=== PATIENT | female | born 1990 | race Caucasian/White ===

== ENCOUNTER 2017-02-15 07:13 | Emergency (ER) | payer BC ==
--- NOTE | ~2017-02-15 | ER ---
PATIENT'S NAME: ANDIE MCCLENDON [facility] AGE: 26 Y [address] ROOM: [place] [address] LOCATION: ED ADMIT DATE: 02/15/2017 ER/Outpatient Report DISCHARGE DATE: 02/15/2017 FAMILY PHYSICIAN: Patrice Vaca MD ATTENDING PHYSICIAN: Herrera Murphy Time of Arrival: Time of Evaluation: Admission date and time documented in the medical record. I saw the patient at 0730 hours. CHIEF COMPLAINT: Right-sided abdominal pain. HISTORY OF PRESENT ILLNESS: This patient is a 26-year-old female, who awoke from sleep, stood up, got severe right-sided abdominal pain. This has been about 20 to 30 minutes prior to admission here to the emergency room. Has a tight sensation in her abdomen, radiates, crossed to her umbilicus and around to her mid back. Little nausea, but no vomiting. No diarrhea. Had a bowel movement last night. No chest pain, shortness of breath. No fall or trauma. No recent colds, coughs, flus, fever, chills, or sweats. No headache, eyes, ears, nose, throat, neck, or spine pain. No lightheadedness, dizziness, syncope, or near syncope. No urinary symptomatology. No joint or muscle swelling, redness, or pain. No skin eruptions or rash. Does have a history of chronic migraine headaches, otherwise, no neurological changes, psychiatric issues, or endocrine problems. HOME MEDICATIONS: See attached medication list. ALLERGIES: ERYTHROMYCIN, PENICILLIN, CEPHALOSPORINS, BIAXIN, CEFTIN, CECLOR, LIDOCAINE, AND ADHESIVES. SOCIAL HISTORY: The patient smokes about a quarter to half pack of cigarettes per day. Nondrinker. SIGNIFICANT PAST MEDICAL HISTORY: 1. Headaches. 2. Tobacco abuse. PAST SURGICAL HISTORY: Operations: 1. Appendectomy. PATIENT'S NAME: ANDIE MCCLENDON [facility] AGE: 26 Y [address] ROOM: [place] [address] LOCATION: ED ADMIT DATE: 02/15/2017 ER/Outpatient Report DISCHARGE DATE: 02/15/2017 FAMILY PHYSICIAN: Patrice Vaca MD ATTENDING PHYSICIAN: Herrera Murphy 2. Sinus surgery. 3. Left breast biopsy. REVIEW OF SYSTEMS: All systems reviewed by me are negative with the exception of those discussed in the History of the Present Illness. PHYSICAL EXAMINATION: VITAL SIGNS: Temperature 97.5, tympanic; pulse 74, regular; respirations 22; blood pressure 111/53; and O2 saturation on room air is 97%. HEENT: Head; normocephalic. Eyes, Ears, Nose, and Throat; clear. Mucous membranes moist. NECK: No nuchal rigidity. No thyromegaly or cervical lymphadenopathy. No tenderness. Full range of motion. SPINE: Nontender. No deformity. LUNGS: Clear. Good air flow. No rales, rhonchi, or wheezes. HEART: Regular. Pulses are palpable. No chest wall or ribcage pain to palpation. No deformity. ABDOMEN: Soft. Some tenderness in the right side of the abdomen. No true guarding or rigidity. No rebound tenderness. No distention. Active bowel tones. No organomegaly or abnormal mass palpable. No CVA tenderness. EXTREMITIES: Intact. NEUROLOGIC: Neurovascularly intact. SKIN: Clear. No skin eruptions or rash. LABORATORY DATA: White count was 8400, 56 segs, 34 lymphs, 8 monos, 2 eos, hemoglobin is 13.6 with a hematocrit of 40.1, and platelet count is 333,000. PTT was 29, prothrombin time was 10.4 with an INR of 0.99. D-dimer was 0.32. Amylase and lipase were normal. CRP was less than 0.29. CMS was normal except for low calcium of 8.4. Urinalysis was clear. Gallbladder ultrasound showed no cholelithiasis, thickened gallbladder wall, or pericholecystic fluid. There was no abnormality with the common duct. See Radiology report. CT scan of the abdomen and pelvis with IV contrast showed no free air or free fluid, or any other abnormalities except for increased stool in the right ascending colon. CT scan was read by Radiology, see dictated transcribed report. IMPRESSION: Right-sided abdominal pain, etiology uncertain but most likely caused from constipation and increased stool pattern in the right ascending colon. PLAN: The patient was given IV fluids here in the emergency department, IV morphine for pain, and IV Zofran for nausea. Did give her 2 Dulcolax tablets orally prior to dismissal, and one bottle of magnesium citrate orally to be taken at PATIENT'S NAME: [facility] AGE: 26 Y [address] ROOM: [place] [address] LOCATION: ED ADMIT DATE: 02/15/2017 ER/Outpatient Report DISCHARGE DATE: 02/15/2017 FAMILY PHYSICIAN: Patrice Vaca MD ATTENDING PHYSICIAN: Herrera Murphy home. Clear liquid diet for 24 hours and advance diet as tolerated. Continue present home medications and care. Follow up with personal physician as needed. Discussion ensued with the patient and her family concerning my findings and recommendations, they understand. MD PETER YOST/modl /[id number] d: 02/15/17 1533 t: 02/16/17 0610, OUTPATIENT REPORT
[~2017-02-15 07:13] MED LIST: MOTRIN800 MG PO; PERCOCET 5-3251 EACH PO; PRENATAL 1+1)(P1 TAB PO; TYLENOL EXTRA500 MG PO
[2017-02-15 07:57] LABS: BASOPHIL % 0.4 %; EOSINOPHIL # 0.2 K/uL (0.0-0.5); HEMATOCRIT 40.1 % (33.0-46.0); HEMOGLOBIN 13.6 g/dL (11.0-15.0); IMMATURE GRANULOCYTE % 0.2 %; LYMPHOCYTE # 2.9 K/uL (0.8-4.0); LYMPHOCYTE % 33.9 %; MCH 29.5 pg (27.0-34.0); MCHC 33.9 gm/dL (32.0-36.5); MONOCYTE # 0.7 K/uL (0.0-1.0); MONOCYTE % 7.7 %; MPV 10.2 fl (9.4-12.4); NEUTROPHIL # (ANC) 4.7 K/uL (1.8-7.8); NEUTROPHIL % 55.8 %; NRBC % 0 /100WBC (0-0.00); PLATELET COUNT 333 K/uL (150-450); RDW-CV 13.4 % (11.9-14.6); WBC 8.4 K/uL (4.0-11.0)
[2017-02-15 07:59] LABS: RBC 4.61 M/uL (3.50-5.00)
[2017-02-15 08:05] LABS: INR - (THERAPEUTIC) 0.99 (0.92-1.07); PROTIME 10.4 SECONDS (9.8-11.4); PTT 29 SECONDS (25-32)
[2017-02-15 08:12] LABS: BILIRUBIN URINE NEGATIVE (NEGATIVE); BLOOD URINE NEGATIVE /UL (NEGATIVE); COLOR URINE YELLOW (YELLOW); GLUCOSE URINE NEGATIVE (NEGATIVE); KETONE URINE NEGATIVE (NEGATIVE); LEUKOCYTES URINE NEGATIVE /UL (NEGATIVE); NITRITE URINE NEGATIVE (NEGATIVE); PROTEIN URINE NEGATIVE (NEGATIVE); SPEC GRAVITY URINE 1.015 (1.003-1.035); TURBIDITY URINE CLEAR (CLEAR); UROBILINOGEN URINE NORMAL (NORMAL)
[2017-02-15 08:15] LABS: ALBUMIN 3.7 gm/dL (3.5-5.0); ALK PHOS 59 IU/L (33-138); ALT 15 IU/L (12-78); ANION GAP 12.9 (10.0-19.0); AST 13 IU/L (10-40); BLOOD UREA NITROGEN 9 mg/dL (6-24); CALCIUM 8.4 mg/dL (8.5-10.5); CHLORIDE 110 mMol/L (96-110); CO2 22 mMol/L (22-32); CREATININE 0.7 mg/dL (0.5-1.1); ESTIMATED GFR (MDRD EQUATION) > 60; POTASSIUM 3.9 mMol/L (3.7-5.1); SODIUM 141 mMol/L (135-145); TOTAL BILIRUBIN 0.3 mg/dL (0.0-1.5); TOTAL PROTEIN 7.4 g/dL (6.0-8.4)
== END 2017-02-15 10:15 | disposition disaster alternative care site (69) ==
LOC: GMED 07:13
PROVIDERS: Emergency Medicine
DX: R10.9 Unspecified abdominal pain (principal); F17.210 Nicotine dependence, cigarettes, uncomplicated; Z79.899 Other long term (current) drug therapy; Z88.1 Allergy status to other antibiotic agents; Z88.0 Allergy status to penicillin; Z88.8 Allergy status to other drugs, medicaments and biological substances; Z88.4 Allergy status to anesthetic agent; Z90.89 Acquired absence of other organs
CPT/HCPCS: J2270; J2405; J7030; Q9967

== ENCOUNTER 2017-02-16 18:27 | Emergency (ER) | payer BC ==
--- NOTE | ~2017-02-16 | ER ---
PATIENT'S NAME: ANDIE MCCLENDON [facility] AGE: 26 Y [address] ROOM: [place] [address] LOCATION: ED ADMIT DATE: 02/16/2017 ER/Outpatient Report DISCHARGE DATE: 02/16/2017 FAMILY PHYSICIAN: Patrice Vaca MD ATTENDING PHYSICIAN: Areli Cloud HISTORY OF PRESENT ILLNESS: A 26-year-old female who presents today with right midabdominal pain. She says it radiates to her shoulder and around her back to her shoulder blades. It is coming and going in intensity. It is always a 5, but then once in a while, it becomes a 10, and it goes between her shoulder blades, it feels like she is being "crushed from the inside" and it is dull. She was here yesterday for the exact same thing where she had a pretty thorough workup done. An ultrasound was done, which showed no biliary pathology then a CT of abdomen and pelvis with IV contrast was done, which showed no hydronephrosis, no renal calculus, but she did have moderate stool in the right colon and a positive 2.1 cm right corpus luteum involuting cyst. She was not aware of this finding of the ovarian cyst and said she had not been told about that yesterday. She has been taking ibuprofen and Tylenol without any relief of the pain. PAST MEDICAL HISTORY: Includes history of migraines and frequent ER presentations for these migraines, history of ovarian cysts as well. SOCIAL HISTORY: She smokes 6-7 cigarettes a day. She does not drink or use any drugs. MEDICATIONS: Please see med list. ALLERGIES: PLEASE SEE MED LIST. REVIEW OF SYSTEMS: Reviewed by me and negative with the exception of those discussed in HPI. PHYSICAL EXAMINATION: VITAL SIGNS: She is 5 feet, 3 inches, she weighs 65.9 kilos, blood pressure is 111/70, heart rate is 101, respiratory rate is 16, temp is 98.9, and satting 96% on room air. GENERAL: The patient looks uncomfortable. She is lying on her left side. She is not actively writhing or retching though. She is not vomiting. She is not pale or diaphoretic. She looks uncomfortable. HEENT: Pupils are equal and reactive to light. She is alert and oriented x4. PATIENT'S NAME: ANDIE MCCLENDON [facility] AGE: 26 Y [address] ROOM: [place] [address] LOCATION: [facility] ADMIT DATE: 02/16/2017 ER/Outpatient Report DISCHARGE DATE: 02/16/2017 FAMILY PHYSICIAN: Patrice Vaca MD ATTENDING PHYSICIAN: Areli Cloud She moves all extremities. GCS is 15. HEART: Heart rate is regular rate and rhythm at this time about 90 beats per minute. She is not hypotensive. LUNGS: Her lung sounds are clear. ABDOMEN: Soft. She has no peritoneal signs. She has normal inspection. Bowel sounds are normal. She has very mild tenderness in the right midabdomen. She has no right upper quadrant tenderness. She has negative Bates sign. She does have positive CVA tenderness. No right lower quadrant tenderness. EMERGENCY ROOM COURSE: I went back and reviewed all the lab work that they did for her yesterday. Lab work was pretty reassuring. The UA had no blood, no evidence of infection, I do think this is probably the ovarian cyst. I asked the patient about this. She says that she does get pain like this with her ovarian cyst, but usually it is a little bit lower; so, she was confused. I think given that she has had a complete workup yesterday and reassuring lab work there and like no new findings today, it is because of the continued pain from yesterday, she has no fevers, stable vital signs etc. when they gets the ovarian cyst, I will be treating her for with pain, we gave her some Wells here and I will give her a script for Wells and I told her to follow up with her [facility]. She understands reasons to come back to the ER sooner. IMPRESSION: Ovarian cyst, right abdominal pain. MD LYNDA GROVES/florencio /[id number] d: 02/17/17510 t: 05/08/17 1811, OUTPATIENT REPORT
== END 2017-02-16 18:57 | disposition disaster alternative care site (69) ==
LOC: GMED 18:27
DX: N83.11 Corpus luteum cyst of right ovary (principal); G43.909 Migraine, unspecified, not intractable, without status migrainosus; F17.210 Nicotine dependence, cigarettes, uncomplicated; Z79.899 Other long term (current) drug therapy; Z88.0 Allergy status to penicillin; Z88.1 Allergy status to other antibiotic agents; Z88.8 Allergy status to other drugs, medicaments and biological substances